=== PATIENT | male | born 1980 | race Caucasian/White ===

== ENCOUNTER 2018-06-27 05:36 | Day surgery (SDC) | payer OTHER ==
[2018-06-23 08:24] VITALS: BMI 40.3
[~2018-06-27] VITALS: Ht 177.8 cm; Wt 126.8 kg
[2018-06-27] VITALS (16 sets, daily range): BP systolic 95–139; BP diastolic 52–72; PULSE 72–88; RESP 8–20; Ht 177.8 cm; Wt 126.8 kg
[2018-06-27] MEDS ORDERED: LACTATED RINGER'S 1,000 ML IV* SCH (06:00)
[2018-06-27] MEDS ORDERED: CEFAZOLIN 2 GM/50 ML (PMX) 50 ML IVPB ONE (06:00)
--- NOTE | 2018-06-27 06:29 | PREAC ---
Date/Time of Note Date/Time of Note DATE: 06/27/18 TIME: 06:28 Anesthesia Eval and Record Evaluation Time Pre-Procedure Interview DATE: 06/27/18 TIME: 06:28 Age 37 Sex male NPO: 8 hrs Preoperative diagnosis lumbar 4-5 herniated disc left Planned procedure lumbar microdiscectomy lumbar 4-5 left Past Medical History Past Medical History: Includes GI: Morbid obesity Surgery & Anesthesia Issues No known issue Meds Anticoagulation: No Beta Renuka within 24 hr: No Reason Beta Renuka not given: Pt. not on B-Renuka Current Medications Cefazolin Sodium/ Dextrose 50 ml @ 100 mls/hr PRE-OP ONCE IVPB ; Start 06/27/18 at 06:00; Stop 06/27/18 at 06:29 Lactated Ringer's 1,000 ml @ 25 mls/hr Q24H IV* ; Start 06/27/18 at 06:00; Stop 06/28/18 at 21:59 Meds reviewed: Yes Allergies Coded Allergies: No Known Allergy (Unverified , 06/23/18) Allergies Reviewed: Yes Labs/Studies Labs Reviewed: Reviewed by anesthesiologist test: N/A Studies: ECG (NSR), CXR (NAD) Pre-procedure Exam Airway: Adequate mouth opening, Adequate thyromental dist Mallampati: Mallampati II Teeth: Normal Lung: Normal Heart: Normal ASA Physical Status ASA physical status: 3 Emergency: None Planned Anesthetic General/MAC: ETT Planned Pain Management Parenteral pain med Pre-operative Attestations Prior to commencing anesthesia and surgery, the patient was re-evaluated, there was verification of: *The patient's identity *The results of appropriate recent lab work and preoperative vital signs *The above evaluation not changing prior to induction *Anesthetic plan, risk benefits, alternative and complications discussed with patient/family; questions answered; patient/family understands, accepts and wishes to proceed. MENG BLAIR MD Jun 27, 2018 06:29
[2018-06-27] MEDS ORDERED: THROMBIN 5000 UNIT VIAL ONE (06:39)
[2018-06-27] MEDS ORDERED: GELATIN SIZE 100 SPONGE ONE (06:39)
[2018-06-27] MEDS ORDERED: BUPIVACAINE 0.25% (MPF) 30 ML INJ ONE (06:39)
[2018-06-27] MEDS ORDERED: POLYMYXIN/BACITRACIN 1L IRRIG ONE (06:55)
[2018-06-27] MEDS ORDERED: PROPOFOL 200 MG INJ ONE (07:00)
[2018-06-27] MEDS ORDERED: ROCURONIUM 50 MG INJ ONE (07:00)
[2018-06-27] MEDS ORDERED: SEVOFLURANE 15 MIN ONE (07:00)
--- NOTE | 2018-06-27 07:04 | HPN ---
Date/Time of Note Date/Time of Note DATE: 06/27/18 TIME: 07:03 Interval H&P Admission Note Pt. seen H&P reviewed: No system changes MILADY ESCOBAR MD Jun 27, 2018 07:04
[2018-06-27] MEDS ORDERED: PROPOFOL 20 ML ONE (07:06)
[2018-06-27] MEDS ORDERED: MIDAZOLAM 1 MG/ML 2 ML INJ ONE (07:06)
[2018-06-27] MEDS ORDERED: SUCCINYLCHOLINE CHLORIDE 100 MG/5 ML SYG IV ONE (07:06)
[2018-06-27] MEDS ORDERED: LIDOCAINE 2% (SDV) 5 ML INJ ONE (07:06)
[2018-06-27] MEDS ORDERED: ONDANSETRON 4 MG INJ ONE (07:30)
[2018-06-27] MEDS ORDERED: DEXAMETHASONE 4 MG/ML 5 ML INJ ONE (07:30)
[2018-06-27] MEDS ORDERED: FAMOTIDINE 20 MG INJ ONE (07:30)
[2018-06-27] MEDS ORDERED: CEFAZOLIN 1 GM INJ ONE (07:33)
[2018-06-27] MEDS ORDERED: hydrALAzine 20 MG INJ ONE (07:45)
[2018-06-27] MEDS ORDERED: OXYCODONE/ACETAMINOPHEN (5/325) TAB PO PRN ×3 (08:00→09:30)
[2018-06-27] MEDS ORDERED: hydrALAzine 20 MG INJ IV PRN (08:00)
[2018-06-27] MEDS ORDERED: EPHEDrine SULFATE 50 MG/5 ML SYG IV PRN (08:00)
[2018-06-27] MEDS ORDERED: DIPHENHYDRAMINE 50 MG INJ IV PRN (08:00)
[2018-06-27] MEDS ORDERED: HYDROmorphONE 1 MG/5 ML IV SYRINGE IV PRN ×2 (08:00)
[2018-06-27] MEDS ORDERED: MEPERIDINE 25 MG INJ IV PRN (08:00)
[2018-06-27] MEDS ORDERED: FENTAnyl 50 MCG/ML VIAL IV PRN ×3 (08:00)
[2018-06-27] MEDS ORDERED: ONDANSETRON 4 MG INJ IV PRN ×2 (08:00→09:30)
[2018-06-27] MEDS ORDERED: PROCHLORPERAZINE 10 MG INJ IV PRN (08:00)
[2018-06-27] MEDS ORDERED: LABETALOL HCL 20MG INJ IV PRN (08:00)
[2018-06-27] MEDS ORDERED: SUGAMMADEX SODIUM 200 MG/2 ML VIAL IV ONE (08:07)
[2018-06-27] MEDS ORDERED: HYDROmorphONE 2 MG/ML SYG ONE (08:12)
--- NOTE | 2018-06-27 09:09 | PAC ---
Date/Time of Note Date/Time of Note DATE: 06/27/18 TIME: 09:05 Post-Anesthesia Notes Post-Anesthesia Note Last documented vital signs Vital Signs Date Temp Pulse Resp B/P (MAP) Pulse Ox O2 O2 Flow FiO2 Time Delivery Rate 06/27/18 98.7 08:57 06/27/18 72 18 125/72 97 05:40 (89) Activity: WNL Respiratory function: WNL Cardiovascular function: WNL Mental status: Baseline Pain reasonably controlled: Yes Hydration appropriate: Yes Nausea/Vomiting absent: Yes Comments BP: 102/52 HR: 88 RR: 15 T: 98.7 SaO2: 98% MENG BALIR MD Jun 27, 2018 09:09
[2018-06-27] MEDS: HYDROmorphONE 1 MG/5 ML IV SYRINGE IV PRN ×2 (09:14→09:37)
--- NOTE | 2018-06-27 09:18 | SIPON ---
Date/Time of Note Date/Time of Note DATE: 06/27/18 TIME: 09:14 Operative Report Preoperative Diagnosis Herniated disc L4-5 centrally and to the left with foraminal stenosis Postoperative Diagnosis Same Operation/Procedure Performed Left hemilaminotomy L4 Microdiscectomy L4-5 on the left Medial facetectomy and foraminotomy L4-5 on the left Baxano transpedicular root decompression L4 on the left Cosmetic wound closure (2.6 cm) Lateral localizing lumbar radiographs (2) Intraoperative nerve monitoring (2-1/4 hours) Surgeon see signature line fast food sales assistant Josselin Arias PA-C Anesthesia: general Estimated blood loss: 10 - 50 ml's Transfusion Required none Specimen Herniated disc L4-5 Grafts/Implants none Complications none MILADY ESCOBAR MD Jun 27, 2018 09:18
--- NOTE | 2018-06-27 09:51 | OPR ---
DATE OF OPERATION: 06/27/2018 PREOPERATIVE DIAGNOSIS: Herniated disk L4-5 centrally and to the left with foraminal stenosis. POSTOPERATIVE DIAGNOSIS: Herniated disk L4-5 centrally and to the left with foraminal stenosis. OPERATION PERFORMED: 1. Left hemilaminotomy, L4. 2. Microdiskectomy, L4-5 on the left. 3. Medial facetectomy and foraminotomy, L4-5 on the left. 4. Baxano transpedicular root decompression L4 on the left. 5. Cosmetic wound closure (2.6 cm). 6. Lateral localized lumbar radiographs (2). 7. Intraoperative nerve monitoring (2 and 1/4 hours). SURGEON: Timothy Thomas MD WELDER FABRICATOR: Josselin Arias PA-C ANESTHESIA: General endotracheal. ANESTHESIOLOGIST: Dayis Lynch MD ESTIMATED BLOOD LOSS: 20 mL - none replaced. DRAINS: No drains employed. COMPLICATIONS: None. PERTINENT HISTORY AND PHYSICAL: This is a 37-year-old male who sustained an injury to his back in the course of his employment on 11/04/2017. He has had extensive care since that time, has remained symptomatic with back and left leg pain which has been unrelieved by conservative management. He has undergone a number of diagnostic studies including an MRI of the lumbar spine, which demonstrated herniation of the L4-5 disk centrally and to the left with foraminal stenosis. Treatment options discussed with the patient, who elected to proceed with surgery. OPERATIVE FINDINGS AT SURGERY: A moderate central left paracentral herniation of the L4-5 disk was confirmed along with foraminal stenosis. The baseline intraoperative nerve monitoring revealed decrease in the left L5 potential of 40%. These returned to normal at the completion of the surgery. OPERATIVE PROCEDURE: With the patient in supine position after satisfactory induction of general endotracheal anesthesia by Dr. Lynch, the patient was turned to the prone kneeling position over the [place] frame. All pressure points were carefully padded. Back was prepped and draped in usual sterile fashion. Athrombic pumps were applied to the legs below the knees to prevent venous stasis during and after procedure. Two 2 spinal needles were placed next to what was felt to be the L4 and L5 spinous processes and lateral roentgenogram was taken which confirmed anatomic localization. A 2.6 cm incision was then carried out midline over the spinous process of L4 after skin was infiltrated with 0.25% Marcaine without epinephrine for postoperative analgesia. Superficial retractors were placed and hemostasis secured with electrocautery. Throughout the procedure, copious amounts of antibacterial irrigating solution were used to periodically irrigate the wound. The fascia was incised in midline with a hot knife and unilateral subperiosteal dissection carried out at L4 on the left. Deep retractors were placed and deep hemostasis secured with electrocautery. A second intraoperative radiograph was taken with deep retractor at what was felt to be the L4-5 interspace. This was confirmed with second x-ray. A left hemilaminotomy at L4 was then carried out using Leksell rongeur, Kerrison punches and curettes. Ligamentum flavum was excised with sharp dissection. The operating microscope was then moved into place. A medial facetectomy and foraminotomy was accomplished using small hand osteotome, mallet, Kerrison punches and curettes. The L5 root was then mobilized medially and protected with Anne'Gagan nerve retractor using microdissection technique. This revealed a herniation of the L4-5 disk centrally and to the left of midline. A 15 blade knife was then used to cut a rectangular window in the annulus and posterior longitudinal ligament and multiple degenerative disk fragments were harvested with pituitary rongeurs and sent to laboratory for pathologic study. Additional fragments were harvested using Clint curettes. A thorough search of the floor of the canal was made with an arthroscopic probe. No additional fragments were encountered. The epidural hemostasis was secured with bipolar electrocautery on low setting. At this point, there still appeared to be some foraminal stenosis distally, and the Baxano instrumentation was brought onto the field. The Ipsi probe was placed into the L4 foramen on the left and the guidewire passed in the usual fashion. The neuro probe was then placed into the foramen and the position of the L4 nerve was confirmed. The 7.5 mm Baxano rasp was then placed on the guidewire and multiple reciprocations carried out to enlarge the posterior aspect of the foramen. The instrumentation was withdrawn. The foramen was flushed with 20 mL of irrigating solution. The anesthesiologist was then asked to perform a Valsalva maneuver at 40 mmHg and no spinal fluid leak was noted. There was no significant oozing at this point in time of any blood and it was therefore elected to close the wound without any Hemovac drains. The wound was closed using #1 Vicryl interrupted sutures in deep paralumbar musculature and deep fascia of back, 2-0 Vicryl subcutaneous approximating sutures in subcu tissue, and a 4-0 Vicryl subcuticular cosmetic closing suture on the skin. Dermabond and sterile compressive dressings were applied. The patient having tolerated the procedure well, was then turned to supine position onto his bed and extubated by Dr. Lynch. He was transported to the recovery room in satisfactory condition. At the conclusion of the procedure, sponge, instrument, and needle counts were all correct. NEED FOR MANAGER COMMERCIAL: During this spinal surgical procedure, my assistant secretary was used to retract and protect the spinal nerves and dural sac. My assistant secretary also employed the suction catheters to evacuate blood from the surgical field to improve visualization of the neural structures. The assistant secretary was medically necessary to facilitate the completion of the surgery in a safe and expeditious manner. [facility] [place] regulations, as well as hospital bylaws, preclude the use of non-licensed health care personnel such as operating room technicians, to perform these functions. Throughout the procedure, neural monitoring was carried out by [employer] including EMG, SSEP and MEP monitoring of the L2, L3, L4, L5, and S1 nerve roots bilaterally along with spinal cord potentials. These were interpreted in real time by Dr. Dean Ponce. Dictated By: TIMOTHY THOMAS MD TM/NTS Conf#: [id number] DID#: [id number] CC: ASHVIN SAAB MD;*EndCC* MTDD
[2018-06-27] MEDS ORDERED: METOCLOPRAMIDE 10 MG INJ IV ONE (11:30)
== END 2018-06-27 10:49 | disposition home or self-care (01) ==
LOC: SDS 05:36 → REC 05:36 → UNDOADMIN 05:36 → EDSTATUS 07:00 → SDS 10:49 → UNDODISIN 12:20
PROVIDERS: ATTEND Orthopaedic Surgery
DX: M51.26 Other intervertebral disc displacement, lumbar region (principal)
CPT/HCPCS: 63030; 72020; 86850; 86900; 86901; 86920; 88304; 97162; J0360; J0690; J1100; J1170; J2250; J2405; J2765; J3010; J7120